=== PATIENT | female | born 2000 | race African-American/Black ===

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

== ENCOUNTER → 2020-04-23 | Outpatient (CLI) | payer OTHER ==
[~2020-04-23] MED LIST: JADENU360 MG PO
== END ==
LOC: COL.RAD 13:45
DX: E07.9 Disorder of thyroid, unspecified (principal); Z86.19 Personal history of other infectious and parasitic diseases; Z86.16 Personal history of COVID-19
CPT/HCPCS: Q9967